=== PATIENT | male | born 2000 ===

== ENCOUNTER 2022-08-22 09:07 | Outpatient (CLI) | payer OTHER, SELFPAY | END 2022-08-22 09:08 | disposition home or self-care (01) | LOC: AMB 08-23 14:48 | PROVIDERS: Visit Provider Family Medicine | DX: S49.81XA Other specified injuries of right shoulder and upper arm, initial encounter (principal); S89.91XA Unspecified injury of right lower leg, initial encounter; V48.3XXA Unspecified car occupant injured in noncollision transport accident in nontraffic accident, initial encounter; Y92.410 Unspecified street and highway as the place of occurrence of the external cause | CPT/HCPCS: A0425; A0429 ==